=== PATIENT | male | born 1990 | race Caucasian/White ===

== ENCOUNTER 2020-04-25 17:10 | Emergency (ER) | payer BC, SELFPAY ==
[2020-04-25 17:11] VITALS: BP 139/77; PULSE 74; RESP 20; TEMP 36.7; O2SAT 97; BMI 30.7
[2020-04-25 17:41] VITALS: BP 139/77; PULSE 76; RESP 18; O2SAT 97
[2020-04-25 17:57] VITALS: BP 130/79; PULSE 69; O2SAT 98
--- NOTE | 2020-04-25 18:02 | HMH.EDGENADL ---
ED Disposition Clinical Impression: Hemorrhoids Qualifiers: Hemorrhoid type: unspecified Qualified Code(s): K64.9 - Unspecified hemorrhoids Disposition: Home, Self-Care Condition on Discharge: Good Instructions: DI for Hemorrhoids Prescriptions: Hydrocortisone Acetate [Anusol HC 30mg Supp] 30 mg RC TID PRN 3 Days supp.rect PRN Reason: rectal pain Prescription Printed Hydrocortisone [Anusol-Hc] 30 gm TP TID PRN 3 Days crm.pe.hamlet PRN Reason: rectal pain Prescription Printed Referrals: Alfa Powers MD [Staff Physician] - 04/26/20 - Critical Care Critical Care Time: No Attestation: On 04/25/20, the high probability of a clinically significant, sudden or life threatening deterioration of the following system(s) required my full and direct attention, intervention and personal management. The time I documented below is in addition to time spent performing reported procedures but includes the following listed in this critical care notation. Medical Decision Making - Medical Records Medical records reviewed: Yes: I reviewed the patient's medical records. - Jeff Inquiry Pt receiving controlled substance: No Vital Signs: 04/25/20 17:11 04/25/20 17:41 04/25/20 17:57 Temperature 98.1 F Temperature Source Oral Pulse Rate [Left Radial] 74 76 69 Respiratory Rate 20 18 Blood Pressure [Right Arm] 139/77 139/77 130/79 Blood Pressure Mean [Right Arm] 97 97 96 Blood Pressure Source [Right Arm] Automatic Cuff Automatic Cuff Automatic Cuff Blood Pressure Position [Right Arm] Sitting Supine Sitting 02 Sat by Pulse Oximetry 97 97 98 Oxygen Delivery Method Room Air Room Air Room Air Medical Decision Narrative: Patient with hemorrhoid, does not appear acutely thrombosed. No full obstruction of the anal opening. He denies any fevers, vomiting or abdominal tenderness. Appropriate for continued outpatient management. Advised to follow-up with general surgery tomorrow for further evaluation. Will prescribe Anusol cream and suppository. General Adult HPI - General Chief complaint: PAIN Stated complaint: hemorrhoids Time Seen by Provider: 04/25/20 18:02 Mode of Arrival: Ambulatory Limitations: No Limitations Description of Symptoms (Recalled from ER Triage Doc. by RN): strained his self on saturday, he has a hemorrhoids came out and wont go back in and this one is very large. PT has a hx of these. BM yesterday and none today and is abnormal for pt - History of Present Illness HPI narrative: This is a 30-year-old male with a past medical history significant for hemorrhoids who presents to the emergency department for pain around the anal opening for the last 3 days after straining lifting some heavy furniture with a friend 3 days ago. This has happened to him before. He has been trying to use Preparation H, warm baths with minimal relief of symptoms. Had a bowel movement yesterday, but none today. No abdominal pain, fever, vomiting. - Related Data Previous Rx's Medication Instructions Recorded omeprazole 10 mg capsule,delayed 10 mg PO DAILY 30 Days #30 cap 12/29/19 release bupropion HCl 75 mg tablet 75 mg PO BID #60 tab 02/16/20 dextroamphetamine-amphetamine ER 10 mg PO DAILY #30 cap 02/24/20 10 mg 24hr capsule,extend release Hydrocortisone Acetate [Anusol HC 30 mg RC TID PRN 3 Days supp.rect 04/25/20 30mg Supp] Hydrocortisone [Anusol-Hc] 30 gm TP TID PRN 3 Days crm.pe.hamlet 04/25/20 Allergies Allergy/AdvReac Type Severity Reaction Status Date / Time No Known Allergies Allergy Verified 02/24/20 14:08 [facility] History - Hepatitis A Screen Drug use history?: No High risk sexual behaviors?: No History of sexually transmitted infection?: No Currently employed?: No Childcare worker?: No Do you have indoor plumbing?: Yes Do you have electricity?: Yes Attestation statement:: This patient has been screened for Hepatitis A risk factors. I have reviewed the patient's past medical history: Yes
[2020-04-25 18:10] VITALS: BP 130/79; PULSE 68; RESP 20; TEMP 36.7; O2SAT 98
== END 2020-04-25 18:15 | disposition home or self-care (01) ==
PROVIDERS: Emergency Provider Emergency Medicine; PCP Emergency Medicine
DX: K64.4 Residual hemorrhoidal skin tags (principal); F17.210 Nicotine dependence, cigarettes, uncomplicated; F41.8 Other specified anxiety disorders
CPT/HCPCS: 99282

== ENCOUNTER → 2020-04-29 10:48 | Outpatient (CLI) | payer BC, SELFPAY ==
[2020-04-29 11:27] LABS: Coronavirus 19 IgG Antibody Negative (Negative); Coronavirus 19 IgM Antibody Negative (Negative)
== END ==
PROVIDERS: Visit Provider Surgery
DX: Z01.812 Encounter for preprocedural laboratory examination (principal); Z20.822 Contact with and (suspected) exposure to COVID-19; K64.9 Unspecified hemorrhoids
CPT/HCPCS: 36415; 86328

== ENCOUNTER 2020-04-29 12:06 | Day surgery (SDC) | payer BC, SELFPAY ==
[2020-04-29] VITALS (10 sets, daily range): BP systolic 114–151; BP diastolic 65–88; PULSE 72–102; RESP 12–20; TEMP 36.1–36.7; O2SAT 94–100; BMI 30.7
--- NOTE | 2020-04-29 13:39 | HMH.ANESCL ---
[facility] Anesthesia Checklist - Structural Data Admitted From: Home Planned Operative Procedure/s: hemorrhoidectomy Consent for Planned Operative Procedure(s) Verified: Yes - Additional verifications Anesthesia Reactions: No Hx Blood Transfusions: No Blood Transfusion Reaction: No - Airway Assessment C-Spine Mobility Assessed: Yes TMJ Mobility Assessed: Yes Dentition: Good Dentition - Neurological Assessment Level of Consciousness: Awake, Alert, Appropriate - Anesthesia Plan Anesthesia Risk discussed: Yes Anesthesia Plan: Verified ASA Class: I Anesthesia Type: General [facility] History I have reviewed the patient's past medical history: Yes Medical History: Reports:: Anxiety, Depression Denies:: Cancer, Diabetes Mellitus Type 1, Diabetes Mellitus Type 2, Internal Pacemaker, MRSA, Seizures *Have you ever received a pneumonia vaccine?: No *Have you received a flu vaccine this season?: No Other Medical History: Denies: Blood Transfusion Reaction Anesthesia experience/problems:: none Other Surgeries: Yes: Other. No: Pacemaker Amputation: No Fractures: No - *Social History Last grade of school completed: High school graduate Smoking Status: Current every day smoker Tobacco Type: cigarettes # Packs/Day (cigarettes): 1 Alcohol Intake: current Alcohol Intake Frequency:: a few times a month Substance Use Type: denies use *Occupational Status:: employed Housing: house Household Members: none *Travel in the last 8 weeks: None - Psychiatric History Pschychiatric History:: Reports:: Anxiety, Depression Family Hx:: Cancer, Heart Attack
--- NOTE | 2020-04-29 14:18 | HMH.ANESI ---
[facility] Anesthesia Record Part I Intake, IV Amount: 1,500 Estimated blood loss (mL): 100 Urine output (mL): 0 Blood Pressure: 120/88 SaO2: 100 Pulse Rate: 102 Respiratory Rate: 12 Temperature: 97 F Patient is:: Awake, Stable Stable to PACU at:: 14:15
--- NOTE | 2020-04-29 14:21 | P.OP_ITS ---
Date of procedure: 04/29/20 Pre-op Diagnosis:: Severe thrombosed hemorrhoid Post-op Diagnosis:: Same Procedure performed:: Complex internal and external hemorrhoidectomy in the left posterior lateral location Surgeon:: Elver Draper MD BUSINESS CONTINUITY COORDINATOR:: Other Anesthesia: LMA Estimated blood loss (mL): 40 Clinical Note:: Patient is a 30-year-old male from [place]. He has had some problems with hemorrhoids in the past consistent with intermittent prolapse. He states that about 1 week ago he was helping some friends move some furniture and straining and had developed hemorrhoid flareup. This persisted and was quite uncomfortable with pain and significant swelling refractory to home outpatient [id number] management. He presented to the emergency department on 04/25/2020. He was found to have what was felt to be a prolapsed acute thrombosed hemorrhoid. It was felt this could be managed as an outpatient with early surgical follow-up. He was scheduled to be seen in the office on this morning. He does state the swelling has diminished somewhat. He has had some trouble with bowel movements. He was seen in the office this morning and was found to have significant hemorrhoid swelling consistent with thrombosed hemorrhoid in the left location. Given the severe degree of hemorrhoid swelling and pain options were discussed including operative intervention. He wished to proceed. Operative findings:: Patient had large complex thrombosed hemorrhoid in the left posterior lateral location. He also had a large prolapsing hemorrhoid in the right anterior lateral location. Operative note:: Consent was obtained and patient was taken the operating room. He was positioned in the supine position. General anesthesia was induced. He was positioned in lithotomy position. The area was prepped and draped in the standard surgical fashion. Digital examination was performed. Vermillion anoscope was inserted. Palpation revealed a large thrombosed internal and external hemorrhoid in the left posterior lateral location. Limited elliptical incision was made overlying the anoderm. There is a large amount of clot which was evacuated. This was complex through the hemorrhoid tissue and required dissection using Metzenbaum scissors. Additional anoderm was excised to evacuate thrombosed hemorrhoid tissue. This was sent off as a specimen. He was noted to have a large prolapsing hemorrhoid in the right anterior lateral location but this did not appear to be acutely inflamed and thrombosed. The anoderm was closed in 2 layers using a running locking 2-0 chromic followed by simple running 2-0 chromic. There appeared to be decent hemostasis. Local anesthetic was infiltrated. Gelfoam roll soaked in topical hemostatic was inserted into the anorectal vault. Dressing was applied. Condition: stable Disposition: PACU Specimens:: Hemorrhoid tissue Complications:: None immediately apparent
--- NOTE | 2020-04-29 16:30 | HMH.ANESII ---
[facility] Anesthesia Record Part II Discharge Time: 14:45 Destination: Surgical Day Care (OP Surgery) PACU nurse assessment reviewed?: Yes Patient Condition:: Good Anesthesia Complications:: None Swallowing reflex intact?: Yes Cyanosis?: No Blood Pressure: 145/87 Pulse Rate: 85 Temperature: 97.3 F Mental Status: Alert & Oriented Pain level:: 0 Nausea and/or vomitting:: None Intake, IV Amount: 0
== END 2020-04-29 15:16 | disposition home or self-care (01) ==
LOC: OR 12:08
PROVIDERS: PCP Emergency Medicine; Visit Provider Surgery
PROC: (CPT 46083; principal; 2020-04-29 13:30)
DX: K64.5 Perianal venous thrombosis (principal); F41.9 Anxiety disorder, unspecified; F32.9 Major depressive disorder, single episode, unspecified; Z72.0 Tobacco use; Z82.3 Family history of stroke; Z80.9 Family history of malignant neoplasm, unspecified; Z79.899 Other long term (current) drug therapy
CPT/HCPCS: 46083 ×2; 96374; J2405

== ENCOUNTER 2020-06-26 22:03 | Emergency (ER) | payer BC, SELFPAY ==
[2020-06-26 22:05] VITALS: BP 152/91; PULSE 77; RESP 14; TEMP 36.9; O2SAT 98; BMI 37.8
[2020-06-26 22:20] VITALS: BMI 30.7
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
[2020-06-26 23:22] VITALS: BP 147/73; PULSE 78; RESP 14; TEMP 36.7; O2SAT 97
== END 2020-06-26 23:24 | disposition home or self-care (01) ==
PROVIDERS: Emergency Provider Emergency Medicine; PCP Emergency Medicine
DX: S06.0X0A Concussion without loss of consciousness, initial encounter (principal); H72.02 Central perforation of tympanic membrane, left ear; Y04.2XXA Assault by strike against or bumped into by another person, initial encounter; Y92.89 Other specified places as the place of occurrence of the external cause; F17.210 Nicotine dependence, cigarettes, uncomplicated; F41.8 Other specified anxiety disorders
CPT/HCPCS: 70450; 70486; 99282

== ENCOUNTER 2020-06-30 07:10 | Day surgery (SDC) | payer BC, SELFPAY ==
[2020-06-28 10:35] VITALS: BMI 30.7
[2020-06-30] VITALS (9 sets, daily range): BP systolic 124–146; BP diastolic 62–93; PULSE 69–108; RESP 16–18; TEMP 36.3–37; O2SAT 94–99
--- NOTE | 2020-06-30 | ECG_ITS ---
APPROVED REPORT Exam: Resting ECG HR:66 bpm ECG Measurements Heart Rate 66 AXES ME 142 P 33 QRSd 90 QRS 36 QT 394 T 3 QTc 413 Conclusion Normal sinus rhythm Isolated q in iii normal ECG Electronically signed by : Valente Pedersen, 06/30/2020 17:31:52
[2020-06-30 07:36] LABS: Basophils # 0.1 K/mm3 (0-0.2); Eosinophils # 0.2 K/mm3 (0.0-0.4); Eosinophils % 3.2 % (0.1-12.0); Hematocrit 45.9 % (42.0-52.0); Hemoglobin 15.6 g/dL (14.1-18.0); Lymphocytes # 1.4 K/mm3 (0.7-4.5); Lymphocytes % 23.9 % (10-50); Mean Corpuscular HGB Conc 33.9 g/dL (31.8-35.4); Mean Corpuscular Hemoglobin 31.8 pg (27.0-31.2); Mean Corpuscular Volume 93.8 fl (80-94); Mean Platelet Volume 8.3 fl (7.4-10.4); Monocytes # 0.3 K/mm3 (0.1-1.0); Monocytes % 5.4 % (1.7-9.3); Neutrophils # 3.9 K/mm3 (1.8-7.8); Neutrophils % 66.5 % (37.0-80.0); Platelet Count 208 K/mm3 (142-424); Red Cell Distribution Width 13.4 % (11.5-17.5); White Blood Count 5.9 K/mm3 (4.8-10.8)
[2020-06-30 07:39] LABS: Chloride 109 mmol/L (98-107); Potassium 4.4 mmoL/L (3.5-5.1); Sodium 141 mmol/L (136-145)
[2020-06-30 07:42] LABS: Alanine Aminotransferase 24 U/L (12-78); Albumin Level 4.7 g/dl (3.5-5.0); Albumin/Globulin Ratio 1.8 (1.1-1.8); Alkaline Phosphatase 57 U/L (38-126); Anion Gap 9.4 mEq/L (5-15); Aspartate Amino Transferase 27 U/L (17-59); Bilirubin,Total 0.5 mg/dl (0.2-1.3); Blood Urea Nitrogen 15 mg/dl (9-20); Calcium 9.5 mg/dl (8.4-10.2); Carbon Dioxide 27 mmol/L (22.0-30.0); Creatinine Clearance Estimated 187 mL/min (50-200); Estimated Glomerular Filt Rate 112 ml/min (>60); GFR (African American) 136 ML/MIN (>60); Globulin 2.6 g/dL (1.3-3.2); Glucose 104 mg/dl (74-100); Total Protein,Serum 7.3 g/dl (6.3-8.2)
[2020-06-30 08:09] LABS: Coronavirus 19 IgG Antibody Negative (Negative); Coronavirus 19 IgM Antibody Negative (Negative)
--- NOTE | 2020-06-30 08:43 | P.PN_ITS ---
[facility] Anesthesia Checklist - Structural Data Admitted From: Home Planned Operative Procedure/s: eardrum repair Consent for Planned Operative Procedure(s) Verified: Yes - Additional verifications Anesthesia Reactions: No Hx Blood Transfusions: No Blood Transfusion Reaction: No - Airway Assessment C-Spine Mobility Assessed: Yes TMJ Mobility Assessed: Yes Dentition: Good Dentition - Neurological Assessment Level of Consciousness: Awake, Alert, Appropriate - Anesthesia Plan Anesthesia Risk discussed: Yes Anesthesia Plan: Verified ASA Class: II Anesthesia Type: General [facility] History I have reviewed the patient's past medical history: Yes Medical History: Reports:: Anxiety, Depression Denies:: Cancer, Diabetes Mellitus Type 1, Diabetes Mellitus Type 2, Internal Pacemaker, MRSA, Seizures *Have you ever received a pneumonia vaccine?: No *Have you received a flu vaccine this season?: No Other Medical History: Denies: Blood Transfusion Reaction Anesthesia experience/problems:: none Other Surgeries: Yes: Other. No: Pacemaker Amputation: No Fractures: No - *Social History Last grade of school completed: High school graduate Smoking Status: Current every day smoker Tobacco Type: cigarettes # Packs/Day (cigarettes): 1 Alcohol Intake: never Alcohol Intake Frequency:: a few times a month Substance Use Type: denies use *Occupational Status:: employed Housing: house Household Members: none *Travel in the last 8 weeks: None - Psychiatric History Pschychiatric History:: Reports:: Anxiety, Depression Family Hx:: Cancer, Heart Attack
--- NOTE | 2020-06-30 10:32 | P.OP_ITS ---
Date of procedure: 06/30/20 Pre-op Diagnosis:: Left tympanic membrane rupture Post-op Diagnosis:: Same Procedure performed:: Left tympanoplasty (repair of left tympanic membrane rupture) Surgeon:: Hayder Lou MD PARCEL POST CLERK:: Other Anesthesia: GETA Estimated blood loss (mL): 5 Operative findings:: Same Operative note:: With the patient under general anesthesia having been given 1 g of Ancef and 12 mg of Decadron the left ear was prepped and draped. There was a traumatic rupture of the left tympanic membrane posteriorly and inferiorly and there was no evidence of any debris in the left middle ear the left ossicular chain was intact. The margins of the perforation were elevated from the left middle ear, and Surgicel snow was placed on the deep aspect of the perforation. And then the ruptured left tympanic membrane was placed over the Surgicel snow and the defect was closed. Surgicel snow was then placed lateral to the defect. Bleeding for all the procedure was less than 5 cc and completely stopped. The patient tolerated procedure well and was sent to recovery in good general condition. 2 Ciprodex drops were placed before the procedure was ended. Condition: stable Disposition: PACU Complications:: none
--- NOTE | 2020-06-30 10:36 | HMH.ANESI ---
[facility] Anesthesia Record Part I Intake, IV Amount: 700 Estimated blood loss (mL): 0 Urine output (mL): 0 Blood Pressure: 146/93 SaO2: 94 Pulse Rate: 108 Respiratory Rate: 18 Temperature: 97.7 F Patient is:: Awake Stable to PACU at:: 10:33
--- NOTE | 2020-07-01 08:04 | P.PN_ITS ---
[facility] Anesthesia Record Part II Discharge Time: 11:03 Destination: Surgical Day Care (OP Surgery) PACU nurse assessment reviewed?: Yes Patient Condition:: Good Anesthesia Complications:: None Swallowing reflex intact?: Yes Cyanosis?: No Blood Pressure: 130/62 Pulse Rate: 76 Temperature: 98.6 F Mental Status: Alert & Oriented Pain level:: 2 Nausea and/or vomitting:: None Intake, IV Amount: 0
[2020-07-01 08:05] VITALS: BP 130/62; PULSE 76; TEMP 37
== END 2020-06-30 11:35 | disposition home or self-care (01) ==
PROVIDERS: PCP Emergency Medicine; Visit Provider Otolaryngology
PROC: (CPT 69610; principal; 2020-06-30 09:15)
DX: S09.22XA Traumatic rupture of left ear drum, initial encounter (principal); Y04.2XXA Assault by strike against or bumped into by another person, initial encounter; F41.9 Anxiety disorder, unspecified; F32.9 Major depressive disorder, single episode, unspecified; Z72.0 Tobacco use; Z82.3 Family history of stroke; Z80.9 Family history of malignant neoplasm, unspecified
CPT/HCPCS: 69610; 36415; 80053; 85025; 86328; 93005; 96374; 96375

== ENCOUNTER → 2020-08-06 07:26 | Outpatient (CLI) | payer BC, SELFPAY ==
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
--- NOTE | 2020-08-06 09:13 | PC.NURSE ---
Called and spoke with Obinna VINCENT with Dr Clarke. Notified her that [facility] was trying to reach Dr Clarke with a critical finding from MRI of brain on pt. Obinna was given information and stated she was going to contact Dr Clarke about pt and gave her the contact info for Dr Luo at [facility] [phone]. notified Izzy in MRI that Obinna was notifying Dr Clarke.
== END ==
PROVIDERS: PCP Emergency Medicine; Visit Provider Specialist
DX: R51.9 Headache, unspecified (principal); Y09 Assault by unspecified means
CPT/HCPCS: 70551

== ENCOUNTER 2020-08-06 10:06 | Emergency (ER) | payer BC, SELFPAY ==
[2020-08-06 10:07] VITALS: BP 161/91; PULSE 93; RESP 18; TEMP 36.7; O2SAT 99; BMI 32.1
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
--- NOTE | 2020-08-06 10:19 | PC.NURSE ---
calling [facility] at this time.
--- NOTE | 2020-08-06 10:31 | PC.NURSE ---
Dr Avery speaking with Dr Hernandez
--- NOTE | 2020-08-06 10:35 | PC.NURSE ---
Dr Hernandez accepted pt at .
[2020-08-06 10:36] LABS: Basophils # 0.1 K/mm3 (0-0.2); Eosinophils # 0.2 K/mm3 (0.0-0.4); Hematocrit 48.6 % (42.0-52.0); Hemoglobin 15.6 g/dL (14.1-18.0); Lymphocytes # 1.7 K/mm3 (0.7-4.5); Lymphocytes % 19.5 % (10-50); Mean Corpuscular HGB Conc 32.1 g/dL (31.8-35.4); Mean Corpuscular Volume 96.6 fl (80-94); Mean Platelet Volume 8.3 fl (7.4-10.4); Monocytes # 0.5 K/mm3 (0.1-1.0); Monocytes % 5.2 % (1.7-9.3); Neutrophils # 6.4 K/mm3 (1.8-7.8); Neutrophils % 72.3 % (37.0-80.0); Platelet Count 215 K/mm3 (142-424); Red Blood Count 5.03 M/mm3 (4.60-6.20); White Blood Count 8.8 K/mm3 (4.8-10.8)
[2020-08-06 10:39] LABS: Anion Gap 10.8 mEq/L (5-15); Blood Urea Nitrogen 12 mg/dl (9-20); Calcium 9.5 mg/dl (8.4-10.2); Carbon Dioxide 27 mmol/L (22.0-30.0); Chloride 106 mmol/L (98-107); Creatinine Clearance Estimated 156 mL/min (50-200); Estimated Glomerular Filt Rate 87 ml/min (>60); GFR (African American) 105 ML/MIN (>60); Glucose 88 mg/dl (74-100); Potassium 3.8 mmoL/L (3.5-5.1); Sodium 140 mmol/L (136-145)
[2020-08-06 10:40] VITALS: BP 132/79; PULSE 95; RESP 16; TEMP 36.8; O2SAT 99
--- NOTE | 2020-08-06 10:43 | PC.NURSE ---
REPORT GIVEN TO MIREILLE SALGADO RN AT ER AT THIS TIME
--- NOTE | 2020-08-06 10:53 | PC.NURSE ---
Pt friend is very aggravated at this time, stating that we didn't care about his condition for a month, he doesn't know why we are so concerned now Explained to pt friend that the current condition of the pt was a new finding and that it wasn't previously seen on the CT scan. Attempted to explain the difference between a CT scan and an MRI but pt's family member didn't want to hear the explanation.
--- NOTE | 2020-08-06 10:53 | PC.NURSE ---
[facility] aware of transfer
[2020-08-06 11:00] VITALS: BP 132/71; PULSE 91; RESP 18; TEMP 36.8; O2SAT 98
== END 2020-08-06 11:20 | disposition short-term general hospital (02) ==
PROVIDERS: Emergency Provider Emergency Medicine; PCP Emergency Medicine
DX: R51.9 Headache, unspecified (principal); S06.5X9S Traumatic subdural hemorrhage with loss of consciousness of unspecified duration, sequela; F41.8 Other specified anxiety disorders; F17.210 Nicotine dependence, cigarettes, uncomplicated
CPT/HCPCS: 80048; 85025; 99283

== ENCOUNTER 2023-10-04 16:28 | Emergency (ER) | payer SELFPAY ==
--- NOTE | 2023-10-04 16:47 | EXP.UTC ---
Discharge Plan Disposition Patient Disposition: Home, Self-Care Condition: Good Prescriptions Prescriptions: New methylprednisolone 4 mg Tablets,Dose Pack 4 mg PO DIRECTED 6 Days Qty: 21 0RF Rx Instructions: Take 1 pack as directed for 6 days albuterol sulfate [Ventolin HFA] 90 mcg/actuation HFA aerosol inhaler 2 puff inhalation Q6H PRN (Reason: shortness of breath or wheezing) Qty: 6.7 0RF kfiimhqrjrshttk-lfjojfnyr-FE [Bromfed DM] 2-30-10 mg/5 mL Syrup 5 ml PO Q6H PRN (Reason: Cough) Qty: 240 0RF amoxicillin-pot clavulanate 875-125 mg Tablet 1 tab PO Q12H Qty: 20 0RF Referrals Follow up/Referrals: Provider,Referral, MD [Primary Care Provider] - See instructions Activity Restrictions/Add. Instructions Additional Instructions/Restrictions: Drink plenty of fluids. Take tylenol or ibuprofen for pain or fever. Take the medications as directed. Follow up with your regular doctor. GO TO THE ER FOR ANY WORSENING SYMPTOMS Clinical Impressions Clinical Impression: Right lower lobe pneumonia Stand Alone Forms Stand Alone Forms: Work/School Release Instructions Patient Instructions: DI for Pneumonia -- Adult Discharge ED Provider: Nakul Youssef [facility] General Stated complaint: Sore throat,congestion,hot & cold Time Seen by Provider: 10/04/23 16:47 Related Data Previous Rx's Medication Instructions Recorded albuterol sulfate 90 mcg/actuation 2 puff inhalation Q6H PRN 10/04/23 aerosol inhaler (Ventolin HFA) shortness of breath or wheezing #6.7 grams amoxicillin 875 mg-potassium 1 tab PO Q12H #20 tabs 10/04/23 clavulanate 125 mg tablet wsjujaojumlqsbh-xcmqyxohjtoyhpp-EV 5 ml PO Q6H PRN Cough #240 mL 10/04/23 2 mg-30 mg-10 mg/5 mL oral syrup (Bromfed DM) methylprednisolone 4 mg tablets in 4 mg PO DIRECTED 6 days #21 tabs 10/04/23 a dose pack Allergies Allergy/AdvReac Type Severity Reaction Status Date / Time No Known Allergies Allergy Verified 09/20/20 08:42 [facility] Disclaimer: The information contained in this section may have been updated after the patient was seen, as this information can be updated by other users. 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 current occupational exposures/hazards: No caffeine: Yes ROS Obtained: Yes All systems reviewed & no additional complaints except as documented Constitutional Constitutional: Reports poor appetite Eyes Eyes: Reports system reviewed and no additional complaints, except as documented ENT Ears, Nose, Mouth, and Throat: Reports as per HPI Cardiovascular Cardiovascular: Reports system reviewed and no additional complaints, except as documented and Denies chest pain Respiratory Respiratory: Denies shortness of breath, Reports chest congestion, Reports cough, Denies stridor and Denies wheezing Gastrointestinal Gastrointestingal: Reports system reviewed and no additional complaints, except as documented; Denies abdominal pain, diarrhea or vomiting Musculoskeletal Musculoskeletal: Reports system reviewed and no additional complaints, except as documented and Denies arthralgias Integumentary/Breasts Skin/Breast: Reports system reviewed and no additional complaints, except as documented and Denies rash Neurologic Neurologic: Denies paresthesias Allergic/Immunologic Allergic/Immunologic: Denies wheezing Physical Exam General General appearance: alert and in no apparent distress Eye Eye exam: Present normal appearance, PERRL and EOMI ENT ENT exam: Present mucous membranes moist and normal external ear exam Expanded ENT Exam External ear exam: Present normal external inspection TM/Canal exam: Bilateral TM: erythema and bulging Nose exam: Absent sinus tenderness Nasal speculum exam: Bilateral: normal Mouth exam: Present normal external inspection; Absent drooling Teeth exam: Present normal inspection Throat exam: Present tonsillar erythema and tonsillomegaly Neck Neck exam: Present normal inspection, full ROM and trachea midline; Absent tenderness, lymphadenopathy or thyromegaly Chest Chest inspection: Present normal inspection and symmetric chest wall rise; Absent tenderness or rash Respiratory Respiratory exam: Present normal lung sounds bilaterally; Absent respiratory distress, wheezes, stridor or accessory muscle use Cardiovascular Cardiovascular exam: Present regular rate, normal rhythm and normal heart sounds Abdominal Exam Abdominal exam: Present soft; Absent distention, tenderness, guarding, rebound or rigidity Extremities Exam Extremities exam: Present normal inspection, full ROM and normal capillary refill; Absent tenderness or calf tenderness Back Exam Back exam: Present normal inspection and full ROM; Absent tenderness Neurological Exam Neurological exam: Present alert and oriented X3 Psychiatric Psychiatric exam: Present normal affect and normal mood Skin Skin exam: Present warm, dry, intact and normal color Lymphatic Lymphatic Findings: no adenopathy Medical Decision Making Medical Records Medical records reviewed: No I reviewed the patient's medical records. Jeff Inquiry Pt receiving controlled substance: No Lab Data Lab results reviewed: Yes I reviewed the patient's lab results.
[2023-10-04 16:50] VITALS: BP 138/82; PULSE 97; RESP 20; TEMP 37.7; O2SAT 96; BMI 36.2
--- NOTE | 2023-10-04 16:54 | XR_ITS ---
PROCEDURE INFORMATION: Exam: XR Chest Exam date and time: 10/04/2023 4:52 PM Age: 33 years old Clinical indication: Cough and shortness of breath; Patient HX: Cough dry & productive at times, SOA. 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 PT concerned for pna TECHNIQUE: Imaging protocol: Radiologic exam of the chest. Views: 2 views. COMPARISON: No relevant prior studies available. FINDINGS: Lungs: Right middle lobe airspace opacity. Suggestion of micronodularity in the right mid/lower lung. Left lung is clear. Pleural spaces: No pleural effusion. No pneumothorax. Heart/Mediastinum: Cardiomediastinal silhouette is normal. Bones/joints: No acute abnormality. IMPRESSION: Right middle lobe airspace opacity. Suggestion of micronodularity in the right mid/lower lung. Findings favored to be secondary to pneumonia. Recommend follow-up imaging following treatment to assess for resolution.
[2023-10-04 17:02] LABS: UTC Strep Screen (Rapid) Negative (Negative)
[2023-10-04 17:25] VITALS: BP 138/82; PULSE 97; RESP 20; TEMP 37.7; O2SAT 96
[2023-10-04 17:31] LABS: Coronavirus 19, PCR Not Detected (NotDetected); Influenza A, PCR Not Detected (NotDetected); Influenza B, PCR Not Detected (NotDetected)
== END 2023-10-04 17:27 | disposition home or self-care (01) ==
PROVIDERS: Emergency Provider Nurse Practitioner Family
DX: J18.9 Pneumonia, unspecified organism (principal); R07.0 Pain in throat; R05.9 Cough, unspecified
CPT/HCPCS: 71046; 87636; 87880; 99204; 99212; G0463